=== PATIENT | female | born 1980 | race Caucasian/White ===

== ENCOUNTER 2017-11-20 06:38 | Inpatient (IN) | payer OTHER ==
[2017-11-20 07:16] VITALS: BMI 30.8
[2017-11-20] MEDS: Lactated Ringer's 1,000 ML IV SCH ×2 (08:20→13:46)
[2017-11-20] MEDS ORDERED: Lidocaine 1% (PF) 30 ML VIAL SC PRN (08:57)
[2017-11-20] MEDS ORDERED: Promethazine HCl 25 MG/ML VIAL IM PRN (08:57)
[2017-11-20] MEDS ORDERED: Ondansetron HCl/PF 4 MG/2 ML Vial IVP PRN ×2 (08:57→22:50)
[2017-11-20] MEDS ORDERED: Acetaminophen/Codeine 30-300mg Tablet PO PRN ×4 (08:57→22:50)
[2017-11-20] MEDS ORDERED: Butorphanol Tartrate 1 MG/ML VIAL SLOW IVP PRN (08:57)
[2017-11-20] MEDS ORDERED: Docusate 100 MG CAP PO PRN (08:57)
[2017-11-20] MEDS ORDERED: Ibuprofen 800 MG TAB PO PRN (08:57)
[2017-11-20] MEDS ORDERED: Bupivacaine/Epinephrine 0.25% 30 ML VIAL ONE (09:00)
[2017-11-20] MEDS ORDERED: NS w/ Oxytocin 10 units 500 ML IV SCH ×2 (09:00)
[2017-11-20 09:09] LABS: Hemoglobin 11.7 g/dL (12.0-16.0); Mean Corpuscular HGB CONC 33.5 g/dL (32.0-36.0); Mean Corpuscular Hemoglobin 26.6 pg (27.0-31.0); Mean Corpuscular Volume 79.4 fL (78.0-98.0); Mean Platelet Volume 7.7 fL (7.4-10.4); Platelet Count 321 thou/uL (130-400); RBC Distribution Width 13.8 % (11.5-14.5); Red Blood Cell (RBC) Count 4.39 mill/uL (4.20-5.40)
[2017-11-20 09:23] LABS: ALT (SGPT) 8 U/L (8-55); AST (SGOT) 12 U/L (5-34); Albumin 3.5 g/dL (3.5-5.0); Alkaline Phosphatase 217 U/L (40-150); Anion Gap 12 mmol/L (10-20); BUN (Urea Nitrogen) 5 mg/dL (7.0-18.7); Bilirubin, Total 0.2 mg/dL (0.2-1.2); Calc. Creatinine Clearance 151 mL/min (70-130); Calcium 9.6 mg/dL (7.8-10.44); Carbon Dioxide 20 mmol/L (22-29); Chloride 109 mmol/L (98-107); Estimated GFR-MDRD Greater than 90; Globulin 3.4 g/dL (2.4-3.5); Glucose 80 mg/dL (70-105); Potassium 3.9 mmol/L (3.5-5.1); Protein, Total 6.9 g/dL (6.0-8.3); Sodium 137 mmol/L (136-145)
[2017-11-20 09:49] LABS: HBSAg Index 0.19 S/CO (0-0.99); Hep B Surf Ag Non-Reactive S/CO (NonReactive)
[2017-11-20 09:51] LABS: Syphilis Antibody Nonreactive (Nonreactive); Syphilis Antibody Index 0.04 S/CO (<1.00 Non-Reactive)
[2017-11-20] MEDS ORDERED: DISCONTINUE ALL PREVIOUS NARCOTICS FS SCH (12:30)
[2017-11-20] MEDS ORDERED: Bupivacaine 0.5% 20 ML, fentaNYL Citrate/PF 400 MCG in Sodium Chloride 0.9% 72 ML EPIDURAL SCH (12:30)
--- NOTE | 2017-11-20 13:18 | PDOC.LDHP ---
Labor and Delivery H&P Chief complaint: contractions HPI: Pt is a 37yo @ 39.4 who presentse with regular, painful contractions and elevated BP. Current gestational age (weeks): 39 Due date: 11/23/17 Dating criteria: first trimester ultrasound Grav: 6 Para: 1 OB History Details: SAB x 4, x 1 Current complications: none Abnormal US findings: No Current medications: pre- vitamins, other (metformin 500mg BID) Previous surgical history: none Allergies/Adverse Reactions: Allergies Allergy/AdvReac Type Severity Reaction Status Date / Time No Known Allergies Allergy Verified 08/04/16 21:36 Social history: none - Physical Exam Abnormal vital signs: BP 140-150/80 General: NAD Heart: RRR Lungs: CTAB Abdomen: gravid Extremeties: trace edema FHT: category 1 - Vaginal Exam cm dilated: 3 Effacement: 50% Station: -2 - OB Labs Blood type: O RH: positive Antibody Screen: negative HIV: negative RPR: negative HEPSAg: negative GBS: negative Rubella: immune - Assessment L&D Assessment: term patient in labor - Plan Plan: admit to L&D, labor augmentation if indicated, informed consent obtained, anesthesia consult for pain management -: A/P: Term pt with mild range BP/PIH and in early labor. Admit, epidural if desired, magnesium if indicated for severe features. AROM on admit exam with clear fluid noted.
--- NOTE | 2017-11-20 13:21 | PDOC.LDPN ---
Labor & Delivery Progress Note - Subjective Subjective: painful contractions - Objective Vital signs reviewed and normal: yes General: breathing through contractions Uterine fundus: non tender Dilation: 5 Effacement: 75% Station: -2 FHT: category 1 AROM: clear fluid - Assessment (1) 39 weeks gestation of Code(s): Z3A.39 - 39 WEEKS GESTATION OF Current Visit: Yes Status : Acute (2) Active labor at term Code(s): ATO4502 - Current Visit: Yes Status: Acute Plan: continue plan of care, pitocin for augmentation
[2017-11-20] MEDS ORDERED: ePHEDrine/0.9% NaCl/PF SYRINGE 50 mg/10 ml SLOW IVP PRN (13:36)
[2017-11-20] MEDS ORDERED: Lactated Ringer's 500 ML IV PRN (13:36)
[2017-11-20] MEDS ORDERED: Eucerin (Mineral Oil/Petrolatum,White) 30 gm Jar TOP PRN (13:36)
[2017-11-20] MEDS ORDERED: Naloxone HCl 0.4 mg/ml Vial IVP PRN ×2 (13:36)
[2017-11-20] MEDS ORDERED: fentaNYL Citrate/PF 400 MCG, Bupivacaine 0.5% 20 ML in Sodium Chloride 0.9% 72 ML EPIDURAL SCH (13:45)
[2017-11-20] MEDS ORDERED: Communication Order-Pharmacy FS SCH (13:45)
[2017-11-20] MEDS: NS / Oxytocin 40 units/1000ml 1,000 ML IV PRN ×2 (17:02→18:11)
--- NOTE | 2017-11-20 17:08 | PDOC.OPDEL ---
OB Operative/Delivery Note Delivery Dr/Surgeon: Dixon Pre-Delivery Diagnosis: active labor Procedure/Post Delivery Dx: spontaneous vaginal delivery Weeks gestation: 39 Anesthesia: epidural - Findings A Sex: female - 1 min: 8 - 5 min: 9 - Additional Findings/Plan Placenta delivered: spontaneous Repaired Obstetrical Laceration: 1st degree Estimated blood loss: 400ml QBL pending Post delivery plan: routine recovery
[2017-11-20] MEDS ORDERED: diphenhydrAMINE 25 MG CAP PO PRN (22:50)
[2017-11-20] MEDS ORDERED: Milk Of Magnesia 30 ML UDCUP PO PRN (22:50)
[2017-11-20] MEDS ORDERED: Lanolin Ointment 7 GM TUBE TOP PRN (22:50)
[2017-11-20] MEDS ORDERED: Benzocaine/Menthol 20-0.5% 60 ML CAN TOP PRN (22:50)
[2017-11-20] MEDS ORDERED: Preparation H Ointment 28 GM TUBE PR PRN (22:50)
[2017-11-20] MEDS ORDERED: NS / Oxytocin 40 units/1000ml 1,000 ML IV SCH (22:50)
[2017-11-20] MEDS ORDERED: Bisacodyl 10 MG SUPP PR PRN (22:50)
[2017-11-20] MEDS ORDERED: Docusate Calcium (SURFAK) 240 MG CAP PO SCH (23:15)
[2017-11-20] MEDS ORDERED: Ibuprofen 800 MG TAB PO SCH (23:15)
--- NOTE | 2017-11-21 02:01 | PDOC.PP ---
Post Progress Note Post Day #: 1 Subjective: , doing well PO intake tolerated: yes Flatus: yes Ambulation: yes Vital Signs (12 hours) Temp Pulse Resp BP Pulse Ox 11/20/17 22:40 97.7 F 68 18 120/57 L 97 Weight Weight 158 lb - Physical Examination General: NAD Cardiovascular: no m/r/g Respiratory: clear to auscultation bilaterally Abdominal: + bowel sounds, lochia, no distention, appropriately TTP Extremities: negative homans (B) Neurological: no gross focal deficits Psychiatric: A&Ox3, normal affect Result Diagrams: 11/20/17 08:20 11/20/17 08:20 Additional Labs: Post Labs Blood Type O POSITIVE 11/20/17 08:20 Hep Bs Antigen Non-Reactive S/CO (NonReactive) 11/20/17 08:20 (1) Vaginal delivery Code(s): O80 - ENCOUNTER FOR FULL-TERM UNCOMPLICATED DELIVERY Status: Acute - Assessment/Plan PPD 1 after 1700 today. baby well. I discussed with harper COPELAND and baby should be clear for DC home after first 24 hours. Mom would like to be discharged ome after 24 hrs. I have set a discharge in the EMR for 1800 DC home. Sara as outpatient med.
[2017-11-21 05:22] LABS: Hemoglobin 10.1 g/dL (12.0-16.0); Mean Corpuscular HGB CONC 33.1 g/dL (32.0-36.0); Mean Corpuscular Hemoglobin 26.7 pg (27.0-31.0); Mean Corpuscular Volume 80.4 fL (78.0-98.0); Mean Platelet Volume 7.6 fL (7.4-10.4); Platelet Count 276 thou/uL (130-400); RBC Distribution Width 13.8 % (11.5-14.5); Red Blood Cell (RBC) Count 3.77 mill/uL (4.20-5.40); White Blood Cell (WBC) Count 15.2 thou/uL (4.8-10.8)
[2017-11-21] MEDS: Ibuprofen 800 MG TAB PO SCH ×2 (06:07→13:55)
[2017-11-21] MEDS: Ferrous Sulfate 325 MG TAB PO SCH ×2 (08:34→16:20)
[2017-11-21] MEDS ORDERED: Prenatal Vitamin 1 TAB PO SCH (09:00)
[2017-11-21] MEDS ORDERED: Docusate Calcium (SURFAK) 240 MG CAP PO SCH (09:00)
[2017-11-21] MEDS ORDERED: Adacel (T-DAP) 0.5 ML VIAL IM ONE (09:00)
[2017-11-21 11:29] VITALS: TEMP 97.6
[2017-11-21 15:35] VITALS: BP 132/69
== END 2017-11-21 18:50 | disposition home or self-care (01) | DRG 775 ==
LOC: L&D/OP 06:38 → L&D 12:28 → 3SW 22:49
PROVIDERS: ADMIT Obstetrics & Gynecology; ATTEND Obstetrics & Gynecology
PROC: 10E0XZZ Delivery of Products of Conception, External Approach (ICD-10-PCS; principal; 2017-11-20)
PROC: 0HQ9XZZ Repair Perineum Skin, External Approach (ICD-10-PCS; 2017-11-20)
DX: O13.4 Gestational [pregnancy-induced] hypertension without significant proteinuria, complicating childbirth (principal); Z3A.39 39 weeks gestation of pregnancy; O70.0 First degree perineal laceration during delivery; Z37.0 Single live birth
CPT/HCPCS: 36415; 51702; 80053; 85027; 86780; 86850; 86900; 86901; 87340; 99285; J2001; J3010; J3490; J7050

== ENCOUNTER 2019-03-23 14:31 | Outpatient (CLI) | payer OTHER ==
--- NOTE | 2019-03-23 15:33 | MMO ---
Bilateral MAMMO Bilat Diag [facility]. CLINICAL HISTORY: Patient is 38 years old and is seen for diagnostic exam. The patient has no family history of breast cancer. The patient has no personal history of cancer. VIEWS: The views performed were: bilateral craniocaudal with tomosynthesis; bilateral mediolateral oblique with tomosynthesis; and bilateral mediolateral with tomosynthesis. FILMS COMPARED: The present examination has been compared to a prior imaging study performed at [facility] on 03/23/2019. This study has been interpreted with the assistance of computer-aided detection. MAMMOGRAM FINDINGS: The breasts are heterogeneously dense, which could obscure a lesion on mammography. There are stable benign appearing calcifications seen in both breasts. There are no mammographic or sonographic abnormalities in the area of palpable concern. The patient is referred back to her clinician. Negative imaging findings should not preclude biopsy if clinical findings are suspicious. There are no suspicious masses, suspicious calcifications, or areas of architectural distortion. IMPRESSION: THERE IS NO MAMMOGRAPHIC EVIDENCE OF MALIGNANCY. THERE ARE NO MAMMOGRAPHIC OR SONOGRAPHIC ABNORMALITIES IN THE AREA OF PALPABLE CONCERN. THE PATIENT IS REFERRED BACK TO HER CLINICIAN. NEGATIVE IMAGING FINDINGS SHOULD NOT PRECLUDE BIOPSY IF CLINICAL FINDINGS ARE SUSPICIOUS. A ROUTINE FOLLOW-UP MAMMOGRAM IN 1 YEAR IS RECOMMENDED. THE RESULTS OF THIS EXAM WERE SENT TO THE PATIENT. ACR BI-RADS Category 2 - Benign finding MAMMOGRAPHY NOTE: 1. A negative mammogram report should not delay a biopsy if a dominant of clinically suspicious mass is present. 2. Approximately 10% to 15% of breast cancers are not detected by mammography. 3. Adenosis and dense breasts may obscure an underlying neoplasm. Reported by: WENDY SMALLS MD Electonically Signed: [id number]
--- NOTE | 2019-03-23 15:38 | ULT ---
LIMITED LEFT BREAST ULTRASOUND 03/23/19 PROVIDED CLINICAL HISTORY: Left breast palpable abnormality. FINDINGS: Limited sonographic interrogation of the left breast was performed at the 1 o'clock position. The son ographic appearance of the breast tissue in this region is normal. IMPRESSION: BIRADS 1: Negative. Negative imaging findings should not preclude further evaluation of a clinically suspicious abnormality. Patient is referred back to her clinician. POS: OFF
== END 2019-03-23 14:32 | disposition home or self-care (01) ==
LOC: BICMAMMO 14:31
PROVIDERS: ATTEND Obstetrics & Gynecology
DX: N63.20 Unspecified lump in the left breast, unspecified quadrant (principal)
CPT/HCPCS: 77066; G0279

== ENCOUNTER 2024-09-06 07:04 | Outpatient (CLI) | payer BC | END 2024-09-06 07:05 | disposition home or self-care (01) | LOC: BICULT 07:04 | PROVIDERS: ATTEND Obstetrics & Gynecology | DX: N83.202 Unspecified ovarian cyst, left side (principal) | CPT/HCPCS: 76856 ==